=== PATIENT | male | born 1980 | race Caucasian/White ===

== ENCOUNTER 2023-01-30 22:42 | Emergency (ER) | payer OTHER ==
[~2023-01-30] VITALS: Ht 170.2 cm; Wt 105.0 kg
[2023-01-30 22:48] VITALS: BP 125/60
[2023-01-30] MEDS ORDERED: IPRATROPIUM BROMIDE (0.02%) 0.5MG/2.5ML NEB HHN STA (23:02)
[2023-01-30] MEDS ORDERED: METHYLPREDNISOLONE SOD SUCC 125MG/2ML (ACT-O-VIAL) IM STA (23:02)
[2023-01-30] MEDS ORDERED: ALBUTEROL (0.083%) 2.5MG/3ML NEB HHN STA (23:02)
[2023-01-30 23:15] VITALS: PULSE 78; RESP 18; O2SAT 98
[2023-01-31] MEDS ORDERED: ALBU18HF2 IH
[2023-01-31] MEDS ORDERED: P50 PO
[2023-01-31 00:17] VITALS: PULSE 78; RESP 18; TEMP 97.6
== END 2023-01-31 00:18 | disposition home or self-care (01) ==
LOC: ER 23:02
DX: J45.901 Unspecified asthma with (acute) exacerbation (principal)
CPT/HCPCS: 94640; 96372; 99283; J2930; Z7610 ×4